=== PATIENT | male | born 1980 | race Caucasian/White ===

== ENCOUNTER 2018-05-10 08:52 | Emergency (ER) | payer SELFPAY ==
[2018-05-10 09:12] VITALS: BP 135/78
--- NOTE | 2018-05-10 10:33 | UC ---
Rectal Pain HPI - HPI Summary HPI Summary: 37 year old male presents with onset of rectal pain with sitting 1 week ago. States next day noticed bright red blood with stool. States stool was a little hard so started using a fiber supplement and stool softener but has continued to have small amount of bleeding with each stool. States rectal pain is mild. Improves with OTC analgesics. Worsens with sitting. Denies fever, chills, weakness, dizziness, chest pain, palpitations, abdominal pain, nausea, vomiting , or diarrhea. Denies family history of colorectal cancer. - History Of Current Complaint Chief Complaint: UCGeneralIllness Stated Complaint: PERSONAL Time Seen by Provider: 05/10/18 09:46 Hx Obtained From: Patient Pain Intensity: 2 - Allergies/Home Medications Allergies/Adverse Reactions: Allergies Allergy/AdvReac Type Severity Reaction Status Date / Time amoxicillin [From Augmentin] Allergy Intermediate Hives Verified 05/10/18 09:07 clavulanic acid Allergy Intermediate Hives Verified 05/10/18 09:07 [From Augmentin] Home Medications: Home Medications Naproxen Sodium [Aleve] 440 mg PO ONCE 05/10/18 [History Confirmed 05/10/18] PMH/Surg Hx/FS Hx/Imm Hx Previously Healthy: Yes - Denies significant PMH - Surgical History Surgical History: None - Family History Known Family History: Positive: Non-Contributory - Social History Occupation: Employed Full-time Lives: Alone Alcohol Use: None Substance Use Type: None Smoking Status (MU): Never Smoked Tobacco Review of Systems All Other Systems Reviewed And Are Negative: Yes Constitutional: Negative: Fever, Chills Cardiovascular: Negative: Palpitations, Chest Pain Gastrointestinal: Positive: Other - See HPI. Negative: Abdominal Pain, Vomiting , Diarrhea, Nausea Genitourinary: Negative: Dysuria, Frequency, Urgency Is Patient Immunocompromised?: No Physical Exam - Summary Physical Exam Summary: GENERAL APPEARANCE: Well developed, well nourished, alert and cooperative, and appears to be in no acute distress. CARDIAC: Normal S1 and S2. No S3, S4 or murmurs. Rhythm is regular. There is no peripheral edema, cyanosis or pallor. Extremities are warm and well perfused. Capillary refill is less than 2 seconds. LUNGS: Clear to auscultation and percussion without rales, rhonchi, wheezing or diminished breath sounds. ABDOMEN: Positive bowel sounds. Soft, nondistended, nontender. No guarding or rebound. No masses or hepatosplenomegally. RECTAL: Mild excoriation around anus with dried blood. No exterior hemorrhoid or fissure noted. Normal rectal tone. No masses or internal hemorrhoid palpable. Owen dark red blood noted on glove. MUSKULOSKELETAL: ROM intact to all extremities. No joint erythema or tenderness. Normal muscular development. Normal gait. SKIN: Skin normal color, texture and turgor with no lesions or eruptions. Triage Information Reviewed: Yes Vital Signs: Initial Vital Signs Temp 97.9 F 05/10/18 09:08 Pulse 74 05/10/18 09:08 Resp 18 05/10/18 09:08 BP 135/78 05/10/18 09:08 Pulse Ox 99 05/10/18 09:08 Vital Signs Reviewed: Yes Rectal Pain Course/Dx - Course Course Of Treatment: 37 year old male presents with onset of rectal pain with sitting 1 week ago. States next day noticed bright red blood with stool. States stool was a little hard so started using a fiber supplement and stool softener but has continued to have small amount of bleeding with each stool. States rectal pain is mild. Improves with OTC analgesics. Worsens with sitting. Denies fever, chills, weakness, dizziness, chest pain, palpitations, abdominal pain, nausea, vomiting, or diarrhea. Denies family history of colorectal cancer. Afebrile. VSS. Exam unremarkable except for some owen dark red blood on glove after rectal exam. No hemorrhoid, fissure, or masses noted. Suspect bleeding internal hemorrhoid however cannot fully rule out other causes. Recommend symptomatic treatment for hemorroid including increased fiber, stool softener, and OTC hemorrhoid cream. Follow was made for patient on May 24 with gastroenterology. Warning symptoms reviewed. Verbalizes understanding and agrees with POC. - Differential Dx/Diagnosis Differential Diagnosis/HQI/PQRI: Hemorrhoid(s), Rectal Foreign Body, Rectal Polyps Provider Diagnosis: Bleeding per rectum Discharge - Sign-Out/Discharge Documenting (check all that apply): Patient Departure All imaging exams completed and their final reports reviewed: No Studies - Discharge Plan Condition: Stable Disposition: HOME Patient Education Materials: Rectal Bleeding (ED) Referrals: Lina Hein PA [Physician Paper Mill Manager] - (Thursday, May 24, 2018 at 10: 45 am.) Elizabeth Perez PA [Primary Care Provider] - If Needed Additional Instructions: I suspect that you bleeding is from a hemorrhoid however I did not see an exterior hemorrhoid or palpate an interior hemorrhoid therefore cannot fully rule out another cause. Be sure to eat a high fiber diet. Continue to use a fiber supplement such as Metamucil or Citrucel according to directions. Be sure to drink plenty of fluids. You may use a stool softener such as Colace according to direction. Try using an over the counter hemorrhoid cream such as Preparation H for the discomfort. I have arranged follow up with LUIS Perez in gastroenterolgy on May 24 at 10:45. If you cannot make this appointment be sure to call and reschedule. Seek immediate medical attention in the emergency room if you have large amount of blood in your stool, you become weak or dizzy, feel as if your heart is racing, worsening rectal pain, or any worsening of symptoms. - Billing Disposition and Condition Condition: STABLE Disposition: Home - Attestation Statements Provider Attestation: Per institutional requirements, I have reviewed the chart, however, I was not consulted specifically or made aware of this patient by the midlevel provider. I did not personally evaluate, interact with , or disposition this patient.
== END 2018-05-10 10:49 | disposition home or self-care (01) ==
LOC: UCCORT 08:52
DX: K92.1 Melena (principal); Z88.0 Allergy status to penicillin; Z88.8 Allergy status to other drugs, medicaments and biological substances
CPT/HCPCS: 99202; G0463

== ENCOUNTER 2018-07-25 10:13 | Emergency (ER) | payer SELFPAY ==
[2018-07-25 10:37] VITALS: BP 139/94
[2018-07-25] MEDS ORDERED: Ketorolac INJ* 30 MG/ML 1 ML VIAL IV PUSH ONE (10:45)
[2018-07-25] MEDS ORDERED: NS 0.9% 1000 ML** 1,000 ML IV ONE (10:45)
--- NOTE | 2018-07-25 10:47 | UC ---
UC General HPI - HPI Summary HPI Summary: States yesterday morning started with right groin pain (similar symptoms in the past when he has had a kidney stone) Has been drinking a lot of water in hopes pain and stone would pass. Right sided pain has continued and radiating around his back. No dysuria. No hematuria. Does have urinary frequency. No nausea or vomiting. no fever. Hx of kidney stones, once where it was too large and it required lithrotripsy. Meds: Reviewed - History of Current Complaint Chief Complaint: UCGU Stated Complaint: RIGHT SIDE ABD PAIN Time Seen by Provider: 07/25/18 10:38 Pain Intensity: 3 - Allergy/Home Medications Allergies/Adverse Reactions: Allergies Allergy/AdvReac Type Severity Reaction Status Date / Time amoxicillin [From Augmentin] Allergy Intermediate Hives Verified 07/25/18 10:28 clavulanic acid Allergy Intermediate Hives Verified 07/25/18 10:28 [From Augmentin] Home Medications: Home Medications Acetaminophen [Acetaminophen Extra Strength] 1,000 mg PO PRN 07/25/18 [History] PMH/Surg Hx/FS Hx/Imm Hx Previously Healthy: Yes GI/ History: Kidney Stones - Surgical History Surgical History: Yes Surgery Procedure, Year, and Place: LIPOTRIPSY - Family History Known Family History: Positive: Non-Contributory - Social History Alcohol Use: None Substance Use Type: None Smoking Status (MU): Never Smoked Tobacco Review of Systems All Other Systems Reviewed And Are Negative: Yes Gastrointestinal: Positive: Abdominal Pain Genitourinary: Positive: Frequency Physical Exam Triage Information Reviewed: Yes Appearance: Well-Appearing Vital Signs: Initial Vital Signs Temp 97.8 F 07/25/18 10:30 Pulse 85 07/25/18 10:30 Resp 20 07/25/18 10:30 BP 139/94 07/25/18 10:30 Pulse Ox 100 07/25/18 10:30 Vital Signs Reviewed: Yes Respiratory: Positive: Lungs clear, Normal breath sounds Cardiovascular: Positive: RRR, No Murmur Abdomen Description: Positive: Other: - No CVA tenderness. Right sided abdominal pain. No rebound or gaurding Diagnostics - Radiology Abdominal/Pelvis CT Radiology Interpretation Completed By: Radiologist Summary of Radiographic Findings: B/L hydronephrosis, 1 cm stone in mid uretal stone with right sided hydronephrosis. B/L renal stones Course/Dx - Course Course Of Treatment: This is a 37 yr old with right sided abdominal pain. Assessment. Nontoxic appearing. CT scan of abdomen and pelvis: shows hydro with 1 cm stone on right. IVFs 1L and toradol 30 mg IV. Pain free - Spoke with Dr. Rivero who recommended stent and treatment and possibly a nephrostomy tube. Dr. Rivero is not application project leader and is booked full and he recommended going to [facility] for further evaluation and treatment by a urologist. Plan. Recommend going to [facility] ER this evening for urology evaluation you have bilateral stones and hydronephrosis. You need at minimum a stent with treatment for the stone. You need evaluation for bilateral stones and possibly need a nephrostomy tube. Take report and CT scan with you to the ER for follow up. No indication of a urinary tract infection but recommend follow up culture and you should start empiric antibiotics. One dose of ciprofloxacin 500 mg QD given x 1 prior to departure - Diagnoses Provider Diagnosis: Nephrolithiasis, Hydronephrosis Discharge - Sign-Out/Discharge Documenting (check all that apply): Patient Departure All imaging exams completed and their final reports reviewed: Yes - Discharge Plan Condition: Fair Disposition: HOME-RECOMMEND TO ED Referrals: Elizabeth Perez PA [Primary Care Provider] - Additional Instructions: Recommend going to [facility] this evening for urology evaluation you have bilateral stones and hydronephrosis. You need at minimum a stent with treatment for the stone. You need evaluation for bilateral stones and possibly need a nephrostomy tube Take report and CT scan with you to the ER for follow up. No indication of a urinary tract infection but recommend follow up culture and you should start empiric antibiotics One dose of ciprofloxacin 500 mg QD given x 1 prior to departure Follow up urine culture - Billing Disposition and Condition Condition: FAIR Disposition: Home-Recommend to ED
[2018-07-25] MEDS ORDERED: Ciprofloxacin TAB* 500 MG PO ONE (13:05)
== END 2018-07-25 13:20 | disposition home health service (06) ==
LOC: UCCORT 10:13
DX: N13.2 Hydronephrosis with renal and ureteral calculous obstruction (principal); Z88.0 Allergy status to penicillin
CPT/HCPCS: 74176; 81003; 87086; 96361; 96374; 99212; A9270-GY; G0463; J1885